=== PATIENT | female | born 1955 | race Caucasian/White ===

== ENCOUNTER 2020-04-23 13:00 | Outpatient (CLI) | payer MEDICARE, MEDICAID ==
[2020-04-23] MEDS ORDERED: LINA5TAB PO (13:27)
[2020-04-23] MEDS ORDERED: EMPA25TA PO (13:27)
[2020-04-23] MEDS ORDERED: ATOR10TA9 PO (13:27)
== END 2020-04-23 23:59 | disposition home or self-care (01) ==
LOC: STAR 13:00
PROVIDERS: ATTEND Student in an Organized Health Care Education/Training Program
DX: Z01.818 Encounter for other preprocedural examination (principal); N20.0 Calculus of kidney
CPT/HCPCS: 93005

== ENCOUNTER 2020-05-01 05:49 | Day surgery (SDC) | payer MEDICARE, MEDICAID ==
[2020-04-23 13:27] VITALS: BP 132/83
[~2020-05-01] VITALS: Ht 160 cm; Wt 75.6 kg
[~2020-05-01 05:49] MED LIST: ATOR10TA9 PO; EMPA25TA PO; LINA5TAB PO
[2020-05-01] MEDS ORDERED: LACTATED RINGERS 1,000 ML IV SCH (07:13)
[2020-05-01] MEDS ORDERED: GLIM1TAB7 PO (07:27)
[2020-05-01] MEDS ORDERED: CHLORHEXIDINE 15 ML UDC MM ONE (07:30)
[2020-05-01] MEDS ORDERED: FENTANYL PF 100 MCG/2ML ONE (07:52)
[2020-05-01] MEDS ORDERED: MIDAZOLAM 1 MG/ML, 2ML ONE (07:52)
[2020-05-01 08:26] LABS: INTERNATIONAL NORMALIZED RATIO 0.97 (0.93-1.1); PROTHROMBIN TIME 10.3 Seconds (9.6-11.5)
[2020-05-01] MEDS ORDERED: SUCCINYLCHOLINE 20 MG/ML, 10ML ONE (08:39)
[2020-05-01] MEDS ORDERED: PROPOFOL 10 MG/ML, 20ML ONE (08:39)
[2020-05-01] MEDS ORDERED: ONDANSETRON 2MG/ML, 2ML ONE (08:39)
[2020-05-01] MEDS ORDERED: CEFAZOLIN 1,000 MG ONE (08:39)
[2020-05-01] MEDS ORDERED: GLYCOPYRROLATE 0.2MG/1ML, 5ML ONE (08:39)
[2020-05-01] MEDS ORDERED: ROCURONIUM 10MG/ML,5ML ONE (08:39)
[2020-05-01] MEDS ORDERED: DEXAMETHASONE 4 MG/ML, 1ML ONE (08:39)
[2020-05-01] MEDS ORDERED: NEOSTIGMINE 1 MG/ML, 10ML ONE (08:39)
[2020-05-01] MEDS ORDERED: MEPERIDINE/PF 25MG/0.5ML IVPush PRN (09:00)
[2020-05-01] MEDS ORDERED: ALBUTEROL SULFATE 2.5 MG/3 ML NPPB PRN (09:00)
[2020-05-01] MEDS ORDERED: hydrALAzine 20 MG/ML, 1ML IV PRN (09:00)
[2020-05-01] MEDS ORDERED: HYDROmorphone 2 MG/ML, 1ML IVPush PRN (09:00)
[2020-05-01] MEDS ORDERED: OXYcodone 5 MG/5 ML ORAL.SOL UDC PO PRN (09:00)
[2020-05-01] MEDS ORDERED: ACETAMINOPHEN 325 MG TABLET PO PRN (09:00)
[2020-05-01] MEDS ORDERED: DIAZEPAM 5 MG/ML, 2ML IVPush PRN (09:00)
[2020-05-01] MEDS ORDERED: LABETALOL 5MG/ML, 20ML IV PRN (09:00)
[2020-05-01] MEDS ORDERED: FENTANYL PF 100 MCG/2ML IV PRN (09:00)
[2020-05-01] MEDS ORDERED: KETOROLAC 30 MG/1 ML IV PRN (09:00)
[2020-05-01] MEDS ORDERED: PROMETHAZINE 25 MG/ML, 1ML IV PRN (09:00)
[2020-05-01] MEDS ORDERED: KETOROLAC 30 MG/1 ML ONE (10:03)
== END 2020-05-01 11:20 | disposition home or self-care (01) ==
LOC: OUT 05:49
PROVIDERS: ATTEND Student in an Organized Health Care Education/Training Program
DX: N20.0 Calculus of kidney (principal); Z11.59 Encounter for screening for other viral diseases; E11.9 Type 2 diabetes mellitus without complications; E78.5 Hyperlipidemia, unspecified; Z88.0 Allergy status to penicillin; Z91.012 Allergy to eggs; Z79.899 Other long term (current) drug therapy; Z87.891 Personal history of nicotine dependence; Z98.890 Other specified postprocedural states; Z90.710 Acquired absence of both cervix and uterus; Z90.49 Acquired absence of other specified parts of digestive tract; Z85.828 Personal history of other malignant neoplasm of skin; Z82.49 Family history of ischemic heart disease and other diseases of the circulatory system; Z83.3 Family history of diabetes mellitus
CPT/HCPCS: 52356; 74018; 76000; 82360; 82962; 85610; 87635; 88300; C1769; C2617; J0690; J1100; J1885; J2250; J2405; J2704; J3010; J7120; J2710; J0330